=== PATIENT | female | born 1985 | race Caucasian/White ===

== ENCOUNTER 2018-12-30 16:19 | Emergency (ER) | payer OTHER ==
--- NOTE | 2018-12-30 17:10 | PDOC ---
Documentation entered by Lana Calixto SCRIBE, acting as scribe for Kimberlee Llanos MD. Kimberlee Llanos MD: This documentation has been prepared by the Dugra wilson Xhesika, SCRIBE, under my direction and personally reviewed by me in its entirety. I confirm that the documentation accurately reflects all work, treatment, procedures, and medical decision making performed by me. History of Present Illness - General Chief Complaint: Diarrhea Stated Complaint: DIARRHEA History Source: Patient Exam Limitations: No Limitations - History of Present Illness Initial Comments: 12/30/18 17:04 33 yo F with h/o chronic fatigue, headaches who was diagnosed with lyme disease as a cause for her symtpoms, is recently taking azithromycin and cefuroxime for 2.5 weeks. now c/o loose watery stool. has been having 2 - 3 stools per day, did have small amount of blood when wiping the other day. no abd pain. no fever no chills. states she has been taking many supplements and vitamins including probiotiocs while taking antiobiotics. was also diagnosed recently with hypothyroid and started on thyroid medication about 6 weeks ago. sees a nuerologist at [facility] where her family is from and a pcp Dr Chino who prescribed her abx. states in addition to her lyme test, here work up for headache and fatigue has consisted of MRI, MRV of brain in addition to autoimmune testing for lupus and other conditions. Past History - Past Medical History Allergies/Adverse Reactions: Allergies Allergy/AdvReac Type Severity Reaction Status Date / Time acetaminophen [From Percocet] AdvReac Mild Vomiting Verified 12/30/18 16:22 oxycodone [From Percocet] AdvReac Mild Vomiting Verified 12/30/18 16:22 Home Medications: Ambulatory Orders Azithromycin [Zithromax] 500 mg PO DAILY 12/30/18 Cefuroxime Axetil [Ceftin -] 500 mg PO Q12H 12/30/18 Cromolyn Sodium 100 mg PO ONCE 12/30/18 Fludrocortisone Acetate [Florinef -] 0.1 mg PO DAILY 12/30/18 Hydroxychloroquine Sulfate [Plaquenil] 200 mg PO BID 12/30/18 Levothyroxine [Synthroid -] 50 mcg PO DAILY 12/30/18 Loratadine [Claritin] 10 mg PO DAILY 12/30/18 Metoprolol Succinate [Toprol Xl] 12.5 mg PO BID 12/30/18 Nystatin [Mycolog -] 500,000 unit PO TID 12/30/18 Probenecid [Benemid -] 500 mg PO BID 12/30/18 Ranitidine [Zantac -] 150 mg PO BID 12/30/18 clonazePAM [Klonopin -] 0.5 mg PO BID 12/30/18 Review of Systems - Review of Systems Constitutional: No: Chills, Diaphoresis, Fever HEENTM: No: Eye Pain, Blurred Vision Respiratory: No: Cough, Orthopnea Cardiac (ROS): No: Chest Pain, Edema ABD/GI: Yes: Diarrhea : No: Burning, Dysuria, Discharge Musculoskeletal: No: Back Pain, Gout Integumentary: Yes: Other Neurological: Yes: Headache Hematologic/Lymphatic: Yes: Other (fatigue). No: Anemia All Other Systems: Reviewed and Negative *Physical Exam - Physical Exam Comments: 12/30/18 17:07 awake alert lungs clear bilat heart rrr no mrg abd soft nt nd ext wwp no edema. no calf tenderness. skin warm and dry. nuero alert oriented x 3. ED Treatment Course - LABORATORY CBC & Chemistry Diagram: 12/30/18 17:30 12/30/18 17:30 Medical Decision Making - Medical Decision Making 12/30/18 17:08 33 yo F with h/o chronic fatigue headache recently diagnosed with lyme, now having diarreha on abx cefuroxime and azithromycin. plan labs iv hydration r/o electrolyte abnormality or anemia, will ADD TSH although only recenlty started on thyroid medication . if able to produce stool sample will send stool c/s. recommend calling DR Chino to see if she can narrow to one abx. low risk for C diff as afebrile .only 3 stools per day unlikely. is traveling to [place] to see her nuerologist in the next week. 12/30/18 18:54 extensive discussion with patient regarding need for followup with nuerologist and to discuss length of treatment abx for lyme with her treating physician. LFT mild elevation., pt with known fatty liver, is aware of elevation. will given referral for GI to followup with. told if diarreha does not improve with stopping abx after completion of course should seek GI followup. referral for dr voar given. *DC/Admit/Observation/Transfer Diagnosis at time of Disposition: Enteritis, Medication side effect - Discharge Dispostion Disposition: HOME Condition at time of disposition: Improved - Referrals Referrals: Nasir Vora MD [Staff Physician] - - Patient Instructions Printed Discharge Instructions: Diarrhea Additional Instructions: you should follow up with a web sizer for persistant loose stools that continue beyond use of antiobiotics. also discuss with your primary doctor regarding need for both antiobiotics. return for feelings of dizziness, fever, abdominal pain or any concerns. you should continue your probiotics. be sure to drink plenty of liquids. also you can use immodium as directed to help with loose stool. - Post Discharge Activity
[2018-12-30 17:11] VITALS: BP 108/76; PULSE 88; TEMP 99.4; BMI 36.9
[2018-12-30] MEDS ORDERED: SODIUM CHLORIDE 0.9% 1000 ML INFUS.BAG IV ONE (17:11)
[2018-12-30 17:43] LABS: BASO % 0.6 % (0-2.0); HEMATOCRIT 43.5 % (32.4-45.2); HEMOGLOBIN 14.1 GM/dl (10.7-15.3); MCH 29.1 pg (25.7-33.7); MCHC 32.5 g/dl (32.0-36.0); MEAN CELL VOLUME 89.4 fl (80-96); MEAN PLT VOLUME 8.5 fl (7.5-11.1); MONO % 7.9 % (3.8-10.2); NEUT % 59.5 % (42.8-82.8); PLATELET COUNT 285 K/MM3 (134-434); RBC 4.87 M/mm3 (3.60-5.2); RDW 13.2 % (11.6-15.6)
[2018-12-30 17:55] LABS: BILIRUBIN,TOTAL 0.5 mg/dl (0.2-1); CREATININE 0.7 mg/dl (0.55-1.3); POTASSIUM 4.1 mmol/L (3.5-5.1); TOT PROT 7.1 g/dl (6.4-8.2)
== END 2018-12-30 19:12 | disposition home or self-care (01) ==
LOC: FER 16:19
PROC: 3E0337Z Introduction of Electrolytic and Water Balance Substance into Peripheral Vein, Percutaneous Approach (ICD-10-PCS; principal; 2018-12-30)
DX: K52.9 Noninfective gastroenteritis and colitis, unspecified (principal); T65.91XA Toxic effect of unspecified substance, accidental (unintentional), initial encounter; Y92.89 Other specified places as the place of occurrence of the external cause; A69.20 Lyme disease, unspecified; R53.82 Chronic fatigue, unspecified
CPT/HCPCS: 36415; 80053; 83690; 84443; 85025; 99282-25; J7030